=== PATIENT | female | born 1970 | race Caucasian/White ===

== ENCOUNTER → 2023-06-28 09:34 | Outpatient (REF) | payer BC, SELFPAY | LOC: HWEVLT 09:34 | PROVIDERS: ATTENDING PHYSICIAN Radiology Vascular & Interventional Radiology | DX: I83.891 Varicose veins of right lower extremity with other complications (principal) | CPT/HCPCS: 36478 ==

== ENCOUNTER → 2023-07-19 10:30 | Outpatient (REF) | payer BC, SELFPAY | LOC: HWEVLT 10:30 | PROVIDERS: ATTENDING PHYSICIAN Radiology Vascular & Interventional Radiology | DX: I83.891 Varicose veins of right lower extremity with other complications (principal) | CPT/HCPCS: 93971 ==

== ENCOUNTER → 2024-02-08 14:16 | Outpatient (REF) | payer BC, SELFPAY | LOC: HWWDC 14:16 | PROVIDERS: ATTENDING PHYSICIAN Obstetrics & Gynecology Gynecology; FAMILY PHYSICIAN Internal Medicine | DX: Z12.31 Encounter for screening mammogram for malignant neoplasm of breast (principal) | CPT/HCPCS: 77063; 77067 ==

== ENCOUNTER → 2025-04-15 18:41 | Outpatient (REF) | payer BC, SELFPAY | LOC: WDC 18:41 | PROVIDERS: ATTENDING PHYSICIAN Obstetrics & Gynecology Gynecology; FAMILY PHYSICIAN Internal Medicine | DX: Z12.31 Encounter for screening mammogram for malignant neoplasm of breast (principal) | CPT/HCPCS: 77063; 77067 ==

== ENCOUNTER 2025-05-12 01:51 | Emergency (ER) | payer BC, SELFPAY ==
[2025-05-12 01:52] VITALS: BP 160/110
--- NOTE | 2025-05-12 01:58 | ED.GENMED ---
History of Present Illness
General
Chief Complaint: Abdominal Symptoms
Time Seen by Provider: 05/12/25 01:58
History of Present Illness
History of Present Illness:
FOCUSED PAST MEDICAL HISTORY
- Glaucoma
REVIEW OF OLD RECORDS
- Lab work from 2019 unremarkable
Note:
CHIEF COMPLAINT(S)
Nausea and vomiting, with concern for potential hematemesis.
HISTORY OF PRESENT ILLNESS
The patient is a 55-year-old female who began experiencing symptoms at 11:00 PM tonight. She was feeling well earlier in the day. The onset of symptoms included nausea and vomiting, with the vomit having a red appearance, raising concerns about
possible blood content. The patient did not consume any red-colored food prior. Accompanying symptoms include cold hands and diarrhea. She reports feeling lightheaded and as though she might pass out. The patients confirmed the sudden onset
of symptoms.
The patient denies taking any anticoagulant medications, such as warfarin, apixaban (Eliquis), or aspirin, which lessens the immediate concern for serious gastrointestinal bleeding. She is not currently experiencing nausea but has been
intermittently with episodes of vomiting. She reports no black stools but confirms episodes of diarrhea.
During the examination, the patient expressed interest in receiving treatment for nausea and stomach acid relief, indicating she accepts medical intervention in the form of medications and IV fluids.
ADDITIONAL HISTORY OBTAINED FROM SOURCE OTHER THAN THE PATIENT
The patients noted that earlier in the day, the patient was feeling fine until the onset of symptoms at 11:00 PM.
PHYSICAL EXAM
General: Alert, appears fairly comfortable but is holding an emesis bag thinking she may vomit
Skin: Warm, dry.
Cardiovascular: Normal peripheral perfusion, No edema.
Gastrointestinal: Abdomen nondistended, no tenderness on palpation.
Neurological: Alert and oriented to person, place, time, and situation, No focal neurological deficits observed.
PLAN
- Conduct blood work to assess for any underlying issues, including checking blood counts.
- Initiate IV fluids to maintain hydration.
- Administer anti-nausea medication and stomach acid relief medication.
- No indication for imaging studies such as a CT scan at this time.
- Reevaluate after initial treatment to assess response and consider further interventions if necessary.
DIFFERENTIAL DIAGNOSIS
The Differential Diagnosis includes, in no particular order and is not limited to:
1. Viral gastritis
2. Gastroenteritis
3. Peptic ulcer disease
4. Gastric erosions
5. Anna-Garcia tear
6. Upper gastrointestinal bleed
7. Acute gastritis
8. Food poisoning
9. Esophagitis
10. Stress-induced gastritis
SUMMARY OF ENCOUNTER
The patient, a 55-year-old female, presented to the emergency department with nausea, vomiting with red-tinged vomitus, cold hands, diarrhea, and lightheadedness. The symptoms began suddenly at 11 PM. There was concern for potential hematemesis due
to the appearance of the vomit; however, the patients hemoglobin levels were within normal limits, reducing the likelihood of significant gastrointestinal bleeding. Her white blood cell count was elevated, indicating a possible infection or
inflammatory process. Treatment focused on symptom relief, including IV fluid administration for hydration and anti-nausea medication administration.
ASSESSMENT
The patient is likely experiencing gastrointestinal inflammation possibly related to viral gastritis or gastroenteritis, consistent with presentation of nausea, vomiting, and diarrhea. There is a less emergent concern for gastrointestinal bleeding
as laboratory tests were reassuring.
EMERGENCY TREATMENTS ADMINISTERED
The patient received ondansetron (Zofran) for nausea.
PLAN
- Continue monitoring while receiving IV fluids.
- Administer additional anti-nausea medications if needed based on patient response.
- Assess symptoms response to treatment and readiness for possible discharge.
INDEPENDENT REVIEW OF LABS AND INTERPRETATION OF TESTS
My independent review of the CBC shows an elevated white blood cell count, suggesting an inflammatory process or infection. My independent review of chemistry levels indicates the patient is not severely dehydrated, and hemoglobin levels are stable,
which reduces concern for active bleeding.
MEDICATION RECONCILIATION
- Ondansetron administered in the emergency department for nausea.
MEDICAL DECISION MAKING
-Complexity of Data Reviewed: Chronic conditions affecting care included potential viral gastritis and gastroenteritis. The differential diagnosis considered viral gastritis, gastroenteritis, peptic ulcer disease, gastric erosions, Anna-Garcia
tear, upper gastrointestinal bleed, acute gastritis, food poisoning, esophagitis, and stress-induced gastritis.
-Data:
Category 1
The current laboratory tests (CBC) were reviewed and independently interpreted. Clinical information was also supplemented by input from the patients who confirmed sudden onset of symptoms.
Category 2
No imaging was requested at this time, considering the current assessment and lab findings.
-Risk:
Consideration of Admission/Observation: Escalation of care including admission/observation was considered given the complexity and risk of the patients presenting complaint, exam findings, and their underlying comorbidities. However, ultimately the
patient is deemed safe for outpatient management with close follow-up. Reasoning: Work-up is reassuring, revealing no acute life/organ-threatening processes, symptoms are well controlled upon reevaluation, reexamination is reassuring, vitals are
stable, the patient is agreeable with discharge, and reliable for follow-up.
DIAGNOSIS
- Gastroenteritis, unspecified (ICD-10: A09)
- Possible mild upper gastrointestinal bleeding (ICD-10: K92.1) (though active bleeding less likely given normal hemoglobin)
LABS
- White count 16
UPDATE
- Symptoms of nausea vomiting and diarrhea started just before she came in here. She has a soft nontender abdomen.
- She was given several rounds of antiemetic. She had ongoing sensation of nausea
- Leukocytosis likely due to the stress from vomiting and diarrhea
- She was given IV fluids
Past History
Past History
ED Past Medical History: Other (Lumbar herniation)
ED Past Surgical History: Gynecological
Social History
Tobacco: Non-smoker
Drug: None
Personal:
Living: with family
Family History
Family History: CAD
Phy Exam
Physical Exam
Physical Exam:
See HPI
Course
Orders/Labs/Results
Orders:
Orders
05/12/25 02:05
0.9% Sodium Chloride 1000 ml [Nss] 1,000 ml IV BOLUS
Famotidine [Pepcid] 20 mg IV NOW STA
Ondansetron Injectable [Zofran] 4 mg IV NOW STA
05/12/25 02:12
Complete Blood Count/With Diff Urgent
Comprehensive Metabolic Panel Urgent
Lipase Urgent
05/12/25 03:52
Diphenhydramine [Benadryl] 50 mg .ROUTE .STK-MED ONE
Metoclopramide [Reglan] 10 mg .ROUTE .STK-MED ONE
05/12/25 03:53
Diphenhydramine [Benadryl] 25 mg IV NOW STA
Metoclopramide [Reglan] 10 mg IV NOW STA
05/12/25 06:01
Promethazine [Phenergan] 25 mg 0.9% Sodium Chloride 50 ml [Nss] 50 ml IV NOW
05/12/25 06:11
0.9% Sodium Chloride 1000 ml [Nss] 1,000 ml IV BOLUS
Abnormal Lab Results
05/12/25
02:12
WBC 16.3 H 10^3/uL
(4.8-10.8)
Abs Immat Gran (auto) 0.1 H 10^3/uL
(0-0.05)
Absolute Neuts (auto) 13.9 H 10^3/uL
(1.4-6.5)
Absolute Lymphs (auto) 1.1 L 10^3/uL
(1.2-3.4)
Absolute Monos (auto) 1.0 H 10^3/uL
(0.1-0.6)
Neutrophils % 85.5 H %
(42.2-75.2)
Lymphocytes % 6.6 L %
(20.5-51.1)
BUN 20 H mg/dl
(7-17)
Glucose 156 H mg/dl
(70-99)
05/12/25 02:12
05/12/25 02:12
Vital Signs
Initial and Last Documented VS:
Initial Vital Signs
Pulse Resp BP Pulse Ox
112 26 160/110 98
05/12/25 01:52 05/12/25 01:52 05/12/25 01:52 05/12/25 01:52
Last Documented Vital Signs
Pulse Resp BP Pulse Ox
112 26 106/67 98
05/12/25 01:52 05/12/25 01:52 05/12/25 05:00 05/12/25 01:59
*Pulse Oximetry
SaO2: 98
Oxygen Mode of Delivery: Room air
Patient hypoxic: no
*Critical Care Note
Total Time (30-74mins, 75-104mins- exclusive of procedures): Not Applicable
ED Attending Note
-
Portions of this chart may have been created with voice recognition software.� Occasional wrong word or��sound alike� substitutions may have occurred due to the inherent limitations of voice recognition software.
Discharge Plan
Departure
Patient Disposition: Home (Routine Discharge)
Date of Disposition: 05/12/25
Time of Disposition: 05:09
Patient with high blood pressure during this ER visit?: Yes
Discharge Problem:
Vomiting and diarrhea
Instructions: Diarrhea in teens and adults, Nausea and Vomiting, Adult (DC)
Prescriptions:
New
ondansetron 4 mg tablet,disintegrating
4 mg PO Q8H PRN (Reason: nausea and vomiting) 4 Days Qty: 14 0RF
No Action
omeprazole [Prilosec] 40 MG capsule,delayed release(DR/EC)
40 mg PO DAILY Qty: 14 0RF
cyclobenzaprine 10 MG tablet
10 mg PO TIDPRN PRN (Reason: Pain, spasm) Qty: 10 0RF
meloxicam 7.5 MG tablet
7.5 mg PO BID Qty: 15 0RF
Referrals:
Erica Bhatia MD [Family Provider, Internal Medicine]
Activity Restrictions/Additional Instructions:
Your WBC count is high likely due to all the vomiting and diarrhea. We gave you IVF, but no current sign of dehydration. I sent a prescription for Zofran to your pharmacy.
Interventions
Interventions:
*Risk Screen - Suicide Last Done: 05/12/25 01:52
*General Assessment Last Done: 05/12/25 02:18
*Neglect/Abuse Screening Last Done: 05/12/25 01:52
*ED COVID-19 Vaccine History Last Done: 05/12/25 02:18
*ED Influenza Vaccine History Last Done: 05/12/25 02:18
[facility] Fall Risk Assessment Tool Last Done: 05/12/25 02:20
[id number] Assessment Last Done: 05/12/25 02:20
Discharge Date and Time
Print Language: HEBREW
[2025-05-12] MEDS: NSS 1000 IV ×2 (02:16→06:11)
[2025-05-12] MEDS: PEPCID 20 MG IV (02:16)
[2025-05-12] MEDS: ZOFRAN 4 MG IV (02:16)
[2025-05-12 02:18] VITALS: BMI 29.2
[2025-05-12 02:20] VITALS: BP 106/48
[2025-05-12 02:38] LABS: Hematocrit 41.4 % (37.0-47.0); Hemoglobin 14.2 g/dL (12.0-16.0); Mean Corp Hgb Conc. 34.3 g/dL (33.0-37.0); Mean Corpuscular Volume 87.5 fL (81.0-99.0); Nucleated Red Blood Cells % 0 %; Platelet Count 267 10^3/uL (130-400); Red Cell Dist. Width 12.3 % (11.5-14.5)
[2025-05-12 02:59] LABS: ALT (SGPT) 22 U/L (0-35); AST (SGOT) 25 U/L (14-36); Albumin 4.2 g/dl (3.5-5.0); Alkaline Phosphatase 111 U/L (38-126); Blood Urea Nitrogen 20 mg/dl (7-17); Calcium 9.3 mg/dl (8.4-10.2); Carbon Dioxide 27 mmol/L (22-30); Chloride 106 mmol/L (98-107); Estimated Creatinine Clearance 90 ml/min; Glucose 156 mg/dl (70-99); Lipase 127 U/L (23-300); Potassium 3.8 mmol/L (3.5-5.1); Sodium 139 mmol/L (135-145); Total Protein 7.2 g/dl (6.3-8.2); eGFR > 60.00
[2025-05-12] MEDS: BENADRYL 25 MG IV (03:54)
[2025-05-12] MEDS: REGLAN 10 MG IV (03:54)
[2025-05-12 05:00] VITALS: BP 106/67
[2025-05-12] MEDS: PHENERGAN 51 MG IV (06:30)
[2025-05-12 08:04] VITALS: BP 120/78
== END 2025-05-12 08:00 | disposition home or self-care (01) ==
LOC: EMR 01:51
PROVIDERS: EMERGENCY PHYSICIAN Emergency Medicine; FAMILY PHYSICIAN Internal Medicine
DX: R11.2 Nausea with vomiting, unspecified (principal); R19.7 Diarrhea, unspecified; H40.9 Unspecified glaucoma; Z82.49 Family history of ischemic heart disease and other diseases of the circulatory system
CPT/HCPCS: 99283; 96365; 96375; 96361; 80053; 83690; 85025